=== PATIENT | male | born 1995 | race Caucasian/White ===

== ENCOUNTER 2016-10-14 08:24 | Inpatient (IN) | payer OTHER ==
[2016-10-14 09:55] VITALS: BMI 21.2
--- NOTE | 2016-10-14 12:36 | HP ---
COWS - Scale Resting Pulse: 0= [place] 80 or Below Sweatin=Flushed/Facial Moisture Restless Observation: 1= Difficult to Sit Still Pupil Size: 0= Normal to Room Light Bone or Joint Aches: 2= Severe Diffuse Aches Runny Nose/ Eye Tearin= Runny Nose/Eyes GI Upset > 30mins: 2= Nausea/Diarrhea Tremor Observation: 2= Slight Tremor Visible Yawning Observation: 2= >3x During Session Anxiety or Irritability: 2=Irritable/Anxious Goose Flesh Skin: 3=Piloerection COWS Score: 18 Admission ROS S - HPI Chief Complaint: I need to stop using heroin and get my life back. Allergies/Adverse Reactions: Allergies Allergy/AdvReac Type Severity Reaction Status Date / Time No Known Allergies Allergy Verified 10/14/16 10:06 History of Present Illness: pt is a20yr old male with a history of heroin dependence seeking detox for treatment. Exam Limitations: No Limitations - Ebola screening Have you traveled outside of the country in the last 21 days: No Have you had contact with anyone from an Ebola affected area: No Have you been sick,other than usual withdrawal symptoms: No Do you have a fever: No - Review of Systems Constitutional: Chills, Diaphoresis, Loss of Appetite, Night Sweats, Changes in sleep, Unintentional Wgt. Loss EENT: reports: Tearing, Nose Congestion Respiratory: reports: No Symptoms reported Cardiac: reports: No Symptoms Reported GI: reports: Diarrhea, Poor Appetite, Poor Fluid Intake : reports: No Symptoms Reported Musculoskeletal: reports: Back Pain, Joint Pain Integumentary: reports: Flushing, Sweating Neuro: reports: Headache, Tingling, Tremors Endocrine: reports: Excessive Sweating, Flushing, Intolerance to Cold, Intolerance to Heat Hematology: reports: No Symptoms Reported Psychiatric: reports: Judgement Intact, Mood/Affect Appropiate, Orientated x3, Agitated, Anxious Other Systems: Reviewed and Negative Patient History - Patient Medical History Hx Anemia: No Hx Asthma: No Hx Chronic Obstructive Pulmonary Disease (COPD): No Hx Cancer: No Hx Cardiac Disorders: No Hx Congestive Heart Failure: No Hx Hypertension: No Hx Hypercholesterolemia: No Hx Pacemaker: No HX Cerebrovascular Accident: No Hx Seizures: No Hx Dementia: No Hx Diabetes: No Hx Gastrointestinal Disorders: Yes (acid reflux) Hx Liver Disease: No Hx Genitourinary Disorders: No Hx Sexually Transmitted Disorders: No Hx Renal Disease (ESRD): No Hx Thyroid Disease: No Hx Human Immunodeficiency Virus (HIV): No (negative) Hx Hepatitis C: No (negative) Hx Depression: No Hx Suicide Attempt: No (denies) Hx Bipolar Disorder: No Hx Schizophrenia: No Other Medical History: insomnia - Patient Surgical History Past Surgical History: No Hx Neurologic Surgery: No Hx Cataract Extraction: No Hx Cardiac Surgery: No Hx Lung Surgery: No Hx Breast Surgery: No Hx Breast Biopsy: No Hx Abdominal Surgery: No Hx Appendectomy: No Hx Cholecystectomy: No Hx Genitourinary Surgery: No Hx Section: No Hx Orthopedic Surgery: No Anesthesia Reaction: No - PPD History Previous Implant?: Yes Documented Results: Negative w/o proof Implanted On Prior [facility] Admission?: No PPD to be Administered?: Yes - Reproductive History Patient is a Female of Child Bearing Age (11 -55 yrs old): No - Smoking Cessation Smoking history: Current every day smoker Have you smoked in the past 12 months: Yes Aproximately how many cigarettes per day: 20 Hx Chewing Tobacco Use: No Initiated information on smoking cessation: Yes 'Breaking Loose' booklet given: 10/14/16 - Substance & Tx. History Hx Alcohol Use: No Hx Substance Use: Yes Substance Use Type: Heroin, Marijuana Hx Substance Use Treatment: No - Substances Abused Heroin Route: Inhalation Frequency: Daily Amount used: 8-10 bags Age of first use: 17 Date of Last Use: 10/13/16 Marijuana Route: Smoking Frequency: Daily Amount used: $10 Age of first use: 17 Date of Last Use: 10/13/16 Family Disease History - Family Disease History Family History: Denies Admission Physical Exam S - Vital Signs Vital Signs: Vital Signs - 24 hr 10/14/16 09:52 Temperature 96.8 F L Pulse Rate 78 Respiratory 18 Rate Blood Pressure 122/67 - Physical General Appearance: Yes: Appropriately Dressed, Moderate Distress, Thin, Tremorous, Irritable, Sweating, Anxious HEENTM: Yes: Normal Voice, Nasal Congestion, Rhinorrhea Respiratory: Yes: Lungs Clear, Normal Breath Sounds, No Respiratory Distress Neck: Yes: No masses,lesions,Nodules Breast: Yes: Within Normal Limits Cardiology: Yes: Regular Rhythm, Regular Rate, S1, S2 Abdominal: Yes: Normal Bowel Sounds, Soft Genitourinary: Yes: Within Normal Limits Back: Yes: Normal Inspection Musculoskeletal: Yes: full range of Motion, Back pain Extremities: Yes: Normal Capillary Refill, Normal Inspection, Non-Tender, Tremors Neurological: Yes: Fully Oriented, Alert, Normal Response Integumentary: Yes: Normal Color, Diaphoresis Lymphatic: Yes: Within Normal Limits - Diagnostic (1) Opioid dependence with withdrawal Current Visit: Yes Status: Chronic (2) Nicotine dependence Current Visit: Yes Status: Chronic Qualifiers: Nicotine product type: cigarettes Substance use status: uncomplicated Qualified Code(s): F17.210 - Nicotine dependence, cigarettes, uncomplicated Cleared for Admission [facility] - Detox or Rehab [facility] Level of Care: Medically Managed Detox Regimen/Protocol: Methadone [facility] Breath Alcohol Content Breath Alcohol Content: 0 Urine Drug Screen - Results Drug Screen Negative: No Urine Drug Screen Results: THC-Marijuana, WILFREDO-Cocaine, OPI-Opiates, OXY- Oxycodone
[2016-10-14] MEDS ORDERED: guaiFENesin/D-METHORPHAN HB 10 ML UNIT-DOSE CUPS PO PRN (12:43)
[2016-10-14] MEDS ORDERED: NICOTINE POLACRILEX 2 MG GUM BUC PRN (12:43)
[2016-10-14] MEDS ORDERED: IBUPROFEN 400 MG TABLET (FP) PO PRN (12:43)
[2016-10-14] MEDS ORDERED: LOPERAMIDE HCL 2 MG CAPSULE PO PRN (12:43)
[2016-10-14] MEDS ORDERED: MENTHOL/PHENOL 1 EACH UD MM PRN (12:43)
[2016-10-14] MEDS ORDERED: P-EPHED 60MG/TRIPROLIDI 2.5MG TABLET PO PRN (12:43)
[2016-10-14] MEDS ORDERED: MAG HYDROX/AL HYDROX/SIMETH 30 ML UNIT-DOSE CUP PO PRN (12:43)
[2016-10-14] MEDS ORDERED: diphenhydrAMINE HCL 50 MG CAPSULE PO PRN (12:43)
[2016-10-14] MEDS ORDERED: ACETAMINOPHEN 325 MG TABLET (FP) PO PRN (12:43)
[2016-10-14] MEDS ORDERED: MAGNESIUM CITRATE 300 ML BOTTLE PO PRN (12:43)
[2016-10-14] MEDS ORDERED: MAGNESIUM HYDROX 2400MG/30ML ORAL SUSPENSION 30 ML CUP PO PRN (12:43)
[2016-10-14] MEDS ORDERED: METHADONE HCL 10 MG TABLET (FOR DETOX USE ONLY) PO ONE ×2 (12:53→23:00)
[2016-10-14] MEDS: diazePAM 5 MG TABLET PO PRN ×2 (13:26→19:57)
--- NOTE | 2016-10-14 15:04 | EKG ---
Test Reason : Blood Pressure : / mmHG Vent. Rate : 072 BPM Atrial Rate : 072 BPM P-R Int : 166 ms QRS Dur : 108 ms QT Int : 400 ms P-R-T Axes : 069 069 051 degrees QTc Int : 438 ms NORMAL SINUS RHYTHM INCOMPLETE RIGHT BUNDLE BRANCH BLOCK BORDERLINE ECG NO PREVIOUS ECGS AVAILABLE Confirmed by ALINE CARRILLO, BELLA ([id number]) on 10/14/2016 3:04:47 PM Referred By: Confirmed By:BELLA MIRELES MD
[2016-10-14 17:10] LABS: URINE APPEARANCE CLEAR; URINE BILIRUBIN NEGATIVE (NEGATIVE); URINE BLOOD NEGATIVE (NEGATIVE); URINE COLOR YELLOW; URINE GLUCOSE (UA) NEGATIVE (NEGATIVE); URINE KETONE NEGATIVE (NEGATIVE); URINE NITRITE NEGATIVE (NEGATIVE); URINE PROTEIN NEGATIVE (NEGATIVE); URINE UROBILINOGEN NEGATIVE E.U./dl (0.2-1.0)
[2016-10-14 17:22] LABS: URINE LEUK ESTERASE 1+ (NEGATIVE)
[2016-10-14 17:26] LABS: URINE MUCUS MODERATE; URINE RBC 2 /hpf (0-3); URINE WBC 39 /hpf (3-5)
[2016-10-14] MEDS: THIAMINE HCL 100 MG TABLET (FP) PO SCH (22:47)
[2016-10-15] MEDS: diazePAM 5 MG TABLET PO PRN ×5 (05:40→23:29)
[2016-10-15 09:34] LABS: MCH 32.1 pg (25.7-33.7); MCHC 33.4 g/dl (32.0-35.9); MEAN CELL VOLUME 96.1 fl (80-96); MEAN PLT VOLUME 9.8 fl (7.5-11.1); PLATELET COUNT 222 K/MM3 (134-434); RDW 12.9 % (11.9-15.9); WHITE BLOOD COUNT 7.7 K/mm3 (4.0-10.0)
[2016-10-15] MEDS ORDERED: METHADONE HCL 10 MG TABLET (FOR DETOX USE ONLY) PO ONE (10:00)
[2016-10-15 10:39] LABS: ALBUMIN 4.1 g/dl (3.4-5.0); ANION GAP 9 (8-16); CALCIUM 9.3 mg/dL (8.5-10.1); CO2 28 mmol/L (21-32); GLUCOSE,RANDOM 82 mg/dL (74-106); SGOT/AST 11 U/L (15-37)
[2016-10-15 10:41] LABS: ALK PHOS 86 U/L (45-117); BILIRUBIN,TOTAL 0.3 mg/dL (0.2-1.0); CREATININE 0.9 mg/dL (0.7-1.3); SGPT/ALT 20 U/L (12-78); TOT PROT 6.8 g/dl (6.4-8.2)
[2016-10-15] MEDS: NICOTINE 21 MG/24 HOURS TOPICAL PATCH TD SCH (11:13)
[2016-10-15] MEDS: PRENATAL VITAMINS W/ FOLIC ACID TABLET (FP) PO SCH (11:13)
--- NOTE | 2016-10-15 11:27 | PN ---
BHS COWS - Scale Resting Pulse: 0= [place] 80 or Below Sweatin=Flushed/Facial Moisture Restless Observation: 1= Difficult to Sit Still Pupil Size: 0= Normal to Room Light Bone or Joint Aches: 1= Mild Discomfort Runny Nose/ Eye Tearin= Runny Nose/Eyes GI Upset > 30mins: 1= Stomach Cramp Tremor Observation of Outstretched Hands: 2= Slight Tremor Visible Yawning Observation: 1= 1-2x During Session Anxiety or Irritability: 2=Irritable/Anxious Goose Flesh Skin: 0=Smooth Skin COWS Score: 12 BHS Progress Note (SOAP) Subjective: Anxiety,tremors,sweating,interrupted sleep,restless Objective: 10/15/16 11:25 Vital Signs - 8 hr 10/15/16 10/15/16 10/15/16 03:30 06:35 10:42 Temperature 97 F L 96.7 F L Pulse Rate 63 67 Respiratory 18 16 18 Rate Blood Pressure 117/68 107/68 Laboratory Last Values WBC 7.7 K/mm3 (4.0-10.0) 10/15/16 07:47 RBC 4.32 M/mm3 (4.00-5.60) 10/15/16 07:47 Hgb 13.9 GM/dL (11.7-16.9) 10/15/16 07:47 Hct 41.5 % (35.4-49) 10/15/16 07:47 MCV 96.1 fl (80-96) H 10/15/16 07:47 MCHC 33.4 g/dl (32.0-35.9) 10/15/16 07:47 RDW 12.9 % (11.9-15.9) 10/15/16 07:47 Plt Count 222 K/MM3 (134-434) 10/15/16 07:47 MPV 9.8 fl (7.5-11.1) 10/15/16 07:47 Sodium 139 mmol/L (136-145) 10/15/16 07:47 Potassium 4.0 mmol/L (3.5-5.1) 10/15/16 07:47 Chloride 102 mmol/L (98-107) 10/15/16 07:47 Carbon Dioxide 28 mmol/L (21-32) 10/15/16 07:47 Anion Gap 9 (8-16) 10/15/16 07:47 BUN 26 mg/dL (7-18) H 10/15/16 07:47 Creatinine 0.9 mg/dL (0.7-1.3) 10/15/16 07:47 Creat Clearance w eGFR > 60 (>60) 10/15/16 07:47 Random Glucose 82 mg/dL (74-106) 10/15/16 07:47 Calcium 9.3 mg/dL (8.5-10.1) 10/15/16 07:47 Total Bilirubin 0.3 mg/dL (0.2-1.0) 10/15/16 07:47 AST 11 U/L (15-37) L 10/15/16 07:47 ALT 20 U/L (12-78) 10/15/16 07:47 Alkaline Phosphatase 86 U/L (45-117) 10/15/16 07:47 Total Protein 6.8 g/dl (6.4-8.2) 10/15/16 07:47 Albumin 4.1 g/dl (3.4-5.0) 10/15/16 07:47 Urine Color Yellow 10/14/16 13:00 Urine Appearance Clear 10/14/16 13:00 Urine pH 5.0 (5.0-8.0) 10/14/16 13:00 Ur Specific [place] 1.032 (1.001-1.035) 10/14/16 13:00 Urine Protein Negative (NEGATIVE) 10/14/16 13:00 Urine Glucose (UA) Negative (NEGATIVE) 10/14/16 13:00 Urine Ketones Negative (NEGATIVE) 10/14/16 13:00 Urine Blood Negative (NEGATIVE) 10/14/16 13:00 Urine Nitrite Negative (NEGATIVE) 10/14/16 13:00 Urine Bilirubin Negative (NEGATIVE) 10/14/16 13:00 Urine Urobilinogen Negative E.U./dl (0.2-1.0) 10/14/16 13:00 Ur Leukocyte Esterase 1+ (NEGATIVE) H 10/14/16 13:00 Urine RBC 2 /hpf (0-3) 10/14/16 13:00 Urine WBC 39 /hpf (3-5) 10/14/16 13:00 Ur Epithelial Cells Rare /hpf (FEW) 10/14/16 13:00 Urine Mucus Moderate 10/14/16 13:00 RPR Titer Nonreactive (NONREACTIVE) 10/15/16 07:47 Hepatitis C Antibody <0.1 s/co ratio (0.0-0.9) 10/14/16 12:00 labs noted,repeat u/a Assessment: 10/15/16 11:26 withdrawal sx Plan: continue detox
[2016-10-15] MEDS: THIAMINE HCL 100 MG TABLET (FP) PO SCH (23:01)
[2016-10-16] MEDS: diazePAM 5 MG TABLET PO PRN ×5 (06:02→23:43)
[2016-10-16] MEDS ORDERED: METHADONE HCL 5 MG TABLET (FOR DETOX USE ONLY) PO ONE (10:00)
[2016-10-16] MEDS: PRENATAL VITAMINS W/ FOLIC ACID TABLET (FP) PO SCH (10:34)
[2016-10-16] MEDS: NICOTINE 21 MG/24 HOURS TOPICAL PATCH TD SCH (10:35)
--- NOTE | 2016-10-16 12:14 | PN ---
S COWS - Scale Resting Pulse: 0= [place] 80 or Below Sweatin= Chills/Flushing Restless Observation: 1= Difficult to Sit Still Pupil Size: 1= Pupils >than Normal Bone or Joint Aches: 2= Severe Diffuse Aches Runny Nose/ Eye Tearin= Runny Nose/Eyes GI Upset > 30mins: 2= Nausea/Diarrhea Tremor Observation of Outstretched Hands: 1= Tremor [place], Not Seen Yawning Observation: 1= 1-2x During Session Anxiety or Irritability: 2=Irritable/Anxious Goose Flesh Skin: 0=Smooth Skin COWS Score: 13 S Progress Note (SOAP) Subjective: Anxiety,tremors,sweating,interrupted sleep,restless Objective: 10/16/16 12:13 Vital Signs Temperature 96.5 F L 10/16/16 09:54 Pulse Rate 71 10/16/16 09:54 Respiratory Rate 15 10/16/16 09:54 Blood Pressure 112/85 10/16/16 09:54 O2 Sat by Pulse Oximetry (%) Laboratory Last Values WBC 7.7 K/mm3 (4.0-10.0) 10/15/16 07:47 RBC 4.32 M/mm3 (4.00-5.60) 10/15/16 07:47 Hgb 13.9 GM/dL (11.7-16.9) 10/15/16 07:47 Hct 41.5 % (35.4-49) 10/15/16 07:47 MCV 96.1 fl (80-96) H 10/15/16 07:47 MCHC 33.4 g/dl (32.0-35.9) 10/15/16 07:47 RDW 12.9 % (11.9-15.9) 10/15/16 07:47 Plt Count 222 K/MM3 (134-434) 10/15/16 07:47 MPV 9.8 fl (7.5-11.1) 10/15/16 07:47 Sodium 139 mmol/L (136-145) 10/15/16 07:47 Potassium 4.0 mmol/L (3.5-5.1) 10/15/16 07:47 Chloride 102 mmol/L (98-107) 10/15/16 07:47 Carbon Dioxide 28 mmol/L (21-32) 10/15/16 07:47 Anion Gap 9 (8-16) 10/15/16 07:47 BUN 26 mg/dL (7-18) H 10/15/16 07:47 Creatinine 0.9 mg/dL (0.7-1.3) 10/15/16 07:47 Creat Clearance w eGFR > 60 (>60) 10/15/16 07:47 Random Glucose 82 mg/dL (74-106) 10/15/16 07:47 Calcium 9.3 mg/dL (8.5-10.1) 10/15/16 07:47 Total Bilirubin 0.3 mg/dL (0.2-1.0) 10/15/16 07:47 AST 11 U/L (15-37) L 10/15/16 07:47 ALT 20 U/L (12-78) 10/15/16 07:47 Alkaline Phosphatase 86 U/L (45-117) 10/15/16 07:47 Total Protein 6.8 g/dl (6.4-8.2) 10/15/16 07:47 Albumin 4.1 g/dl (3.4-5.0) 10/15/16 07:47 Urine Color Yellow 10/14/16 13:00 Urine Appearance Clear 10/14/16 13:00 Urine pH 5.0 (5.0-8.0) 10/14/16 13:00 Ur Specific [place] 1.032 (1.001-1.035) 10/14/16 13:00 Urine Protein Negative (NEGATIVE) 10/14/16 13:00 Urine Glucose (UA) Negative (NEGATIVE) 10/14/16 13:00 Urine Ketones Negative (NEGATIVE) 10/14/16 13:00 Urine Blood Negative (NEGATIVE) 10/14/16 13:00 Urine Nitrite Negative (NEGATIVE) 10/14/16 13:00 Urine Bilirubin Negative (NEGATIVE) 10/14/16 13:00 Urine Urobilinogen Negative E.U./dl (0.2-1.0) 10/14/16 13:00 Ur Leukocyte Esterase 1+ (NEGATIVE) H 10/14/16 13:00 Urine RBC 2 /hpf (0-3) 10/14/16 13:00 Urine WBC 39 /hpf (3-5) 10/14/16 13:00 Ur Epithelial Cells Rare /hpf (FEW) 10/14/16 13:00 Urine Mucus Moderate 10/14/16 13:00 RPR Titer Nonreactive (NONREACTIVE) 10/15/16 07:47 Hepatitis C Antibody <0.1 s/co ratio (0.0-0.9) 10/14/16 12:00 labs noted Assessment: Withdrawal Symptoms Plan: Continue Detox
[2016-10-16] MEDS ORDERED: SODIUM CHLORIDE NASAL SPRAY 44 ML BOTTLE NS PRN (16:56)
[2016-10-16] MEDS: hydrOXYzine PAMOATE 50 MG CAPSULE (FP) PO PRN (20:49)
[2016-10-16] MEDS: THIAMINE HCL 100 MG TABLET (FP) PO SCH (22:32)
[2016-10-17] MEDS: diazePAM 5 MG TABLET PO PRN ×2 (06:19→10:26)
[2016-10-17] MEDS: hydrOXYzine PAMOATE 50 MG CAPSULE (FP) PO PRN ×3 (08:53→18:56)
[2016-10-17] MEDS ORDERED: METHADONE HCL 5 MG TABLET (FOR DETOX USE ONLY) PO ONE (10:00)
[2016-10-17] MEDS: PRENATAL VITAMINS W/ FOLIC ACID TABLET (FP) PO SCH (10:26)
[2016-10-17] MEDS: NICOTINE 21 MG/24 HOURS TOPICAL PATCH TD SCH (10:28)
[2016-10-17] MEDS ORDERED: BISACODYL 5 MG TABLET.DR (FP) PO ONE (12:00)
--- NOTE | 2016-10-17 15:36 | PN ---
S Progress Note (SOAP) Subjective: Sweating, nausea, anxious, interrupted sleep, tingling in hands; c/o constipation (hard stool yesterday, wants mild laxative) Objective: 10/17/16 15:34 Last Vital Signs Temp Pulse Resp BP Pulse Ox 96.0 F L 89 18 131/80 10/17/16 13:27 10/17/16 13:27 10/17/16 13:27 10/17/16 13:27 Laboratory Tests 10/14/16 10/14/16 10/15/16 12:00 13:00 07:47 WBC 7.7 RBC 4.32 Hgb 13.9 Hct 41.5 MCV 96.1 H MCHC 33.4 RDW 12.9 Plt Count 222 MPV 9.8 Sodium Potassium Chloride Carbon Dioxide Anion Gap BUN Creatinine Creat Clearance w eGFR Random Glucose Calcium Total Bilirubin AST ALT Alkaline Phosphatase Total Protein Albumin Urine Color Yellow Urine Appearance Clear Urine pH 5.0 Ur Specific [place] 1.032 Urine Protein Negative Urine Glucose (UA) Negative Urine Ketones Negative Urine Blood Negative Urine Nitrite Negative Urine Bilirubin Negative Urine Urobilinogen Negative Ur Leukocyte Esterase 1+ H Urine RBC 2 Urine WBC 39 Ur Epithelial Cells Rare Urine Mucus Moderate RPR Titer Hepatitis C Antibody <0.1 10/15/16 10/15/16 07:47 07:47 WBC RBC Hgb Hct MCV MCHC RDW Plt Count MPV Sodium 139 Potassium 4.0 Chloride 102 Carbon Dioxide 28 Anion Gap 9 BUN 26 H Creatinine 0.9 Creat Clearance w eGFR > 60 Random Glucose 82 Calcium 9.3 Total Bilirubin 0.3 AST 11 L ALT 20 Alkaline Phosphatase 86 Total Protein 6.8 Albumin 4.1 Urine Color Urine Appearance Urine pH Ur Specific [place] Urine Protein Urine Glucose (UA) Urine Ketones Urine Blood Urine Nitrite Urine Bilirubin Urine Urobilinogen Ur Leukocyte Esterase Urine RBC Urine WBC Ur Epithelial Cells Urine Mucus RPR Titer Nonreactive Hepatitis C Antibody Labs noted Assessment: 10/17/16 15:34 Withdrawal symptoms C/O Acute constipation Plan: Continue detox Acute constipation: encouraged to drink more water, dulcolax 10mg PO x 1 dose
[2016-10-17] MEDS: THIAMINE HCL 100 MG TABLET (FP) PO SCH (23:30)
[2016-10-18] MEDS: hydrOXYzine PAMOATE 50 MG CAPSULE (FP) PO PRN ×5 (05:39→22:30)
[2016-10-18] MEDS ORDERED: METHADONE HCL 10 MG TABLET (FOR DETOX USE ONLY) PO ONE (10:00)
[2016-10-18] MEDS: NICOTINE 21 MG/24 HOURS TOPICAL PATCH TD SCH (10:27)
[2016-10-18] MEDS: PRENATAL VITAMINS W/ FOLIC ACID TABLET (FP) PO SCH (10:27)
--- NOTE | 2016-10-18 12:07 | PN ---
BHS Progress Note (SOAP) Subjective: Sweating,interrupted sleep,restless Objective: 10/18/16 12:05 Vital Signs - 8 hr 10/18/16 10/18/16 06:09 09:49 Temperature 96.8 F L 96.5 F L Pulse Rate 87 83 Respiratory 16 18 Rate Blood Pressure 100/63 119/69 Laboratory Tests 10/14/16 10/14/16 10/15/16 12:00 13:00 07:47 WBC 7.7 RBC 4.32 Hgb 13.9 Hct 41.5 MCV 96.1 H MCHC 33.4 RDW 12.9 Plt Count 222 MPV 9.8 Sodium Potassium Chloride Carbon Dioxide Anion Gap BUN Creatinine Creat Clearance w eGFR Random Glucose Calcium Total Bilirubin AST ALT Alkaline Phosphatase Total Protein Albumin Urine Color Yellow Urine Appearance Clear Urine pH 5.0 Ur Specific [place] 1.032 Urine Protein Negative Urine Glucose (UA) Negative Urine Ketones Negative Urine Blood Negative Urine Nitrite Negative Urine Bilirubin Negative Urine Urobilinogen Negative Ur Leukocyte Esterase 1+ H Urine RBC 2 Urine WBC 39 Ur Epithelial Cells Rare Urine Mucus Moderate RPR Titer Hepatitis C Antibody <0.1 10/15/16 10/15/16 07:47 07:47 WBC RBC Hgb Hct MCV MCHC RDW Plt Count MPV Sodium 139 Potassium 4.0 Chloride 102 Carbon Dioxide 28 Anion Gap 9 BUN 26 H Creatinine 0.9 Creat Clearance w eGFR > 60 Random Glucose 82 Calcium 9.3 Total Bilirubin 0.3 AST 11 L ALT 20 Alkaline Phosphatase 86 Total Protein 6.8 Albumin 4.1 Urine Color Urine Appearance Urine pH Ur Specific [place] Urine Protein Urine Glucose (UA) Urine Ketones Urine Blood Urine Nitrite Urine Bilirubin Urine Urobilinogen Ur Leukocyte Esterase Urine RBC Urine WBC Ur Epithelial Cells Urine Mucus RPR Titer Nonreactive Hepatitis C Antibody labs noted,repeat U/A Assessment: 10/18/16 12:06 Withdrawal sx. Plan: Continue detox
[2016-10-18 19:05] LABS: URINE APPEARANCE CLEAR; URINE BILIRUBIN NEGATIVE (NEGATIVE); URINE BLOOD NEGATIVE (NEGATIVE); URINE COLOR STRAW; URINE GLUCOSE (UA) NEGATIVE (NEGATIVE); URINE KETONE NEGATIVE (NEGATIVE); URINE NITRITE NEGATIVE (NEGATIVE); URINE PROTEIN NEGATIVE (NEGATIVE); URINE UROBILINOGEN NEGATIVE E.U./dl (0.2-1.0)
[2016-10-18 19:24] LABS: URINE LEUK ESTERASE TRACE (NEGATIVE)
[2016-10-18 19:41] LABS: URINE BACTERIA RARE /hpf (NONE SEEN); URINE RBC <1 /hpf (0-3); URINE WBC 4 /hpf (3-5)
[2016-10-18] MEDS: THIAMINE HCL 100 MG TABLET (FP) PO SCH (22:29)
[2016-10-19] MEDS: hydrOXYzine PAMOATE 50 MG CAPSULE (FP) PO PRN (05:50)
[2016-10-19] MEDS ORDERED: METHADONE HCL 5 MG TABLET (FOR DETOX USE ONLY) PO ONE (06:00)
[2016-10-19 06:10] VITALS: BP 104/67; PULSE 80; TEMP 96.8
--- NOTE | 2016-10-19 08:45 | DS ---
[facility] Detox Discharge Summary Admission Date: 10/14/16 Discharge Date: 10/19/16 - History Present History: Opioid Dependence Pertinent Past History: denies - Physical Exam Results Vital Signs: Vital Signs Temperature 96.8 F L 10/19/16 06:09 Pulse Rate 80 10/19/16 06:09 Respiratory Rate 18 10/19/16 06:09 Blood Pressure 104/67 10/19/16 06:09 O2 Sat by Pulse Oximetry (%) Pertinent Admission Physical Exam Findings: Withdrawal sx. Laboratory Last Values WBC 7.7 K/mm3 (4.0-10.0) 10/15/16 07:47 RBC 4.32 M/mm3 (4.00-5.60) 10/15/16 07:47 Hgb 13.9 GM/dL (11.7-16.9) 10/15/16 07:47 Hct 41.5 % (35.4-49) 10/15/16 07:47 MCV 96.1 fl (80-96) H 10/15/16 07:47 MCHC 33.4 g/dl (32.0-35.9) 10/15/16 07:47 RDW 12.9 % (11.9-15.9) 10/15/16 07:47 Plt Count 222 K/MM3 (134-434) 10/15/16 07:47 MPV 9.8 fl (7.5-11.1) 10/15/16 07:47 Sodium 139 mmol/L (136-145) 10/15/16 07:47 Potassium 4.0 mmol/L (3.5-5.1) 10/15/16 07:47 Chloride 102 mmol/L (98-107) 10/15/16 07:47 Carbon Dioxide 28 mmol/L (21-32) 10/15/16 07:47 Anion Gap 9 (8-16) 10/15/16 07:47 BUN 26 mg/dL (7-18) H 10/15/16 07:47 Creatinine 0.9 mg/dL (0.7-1.3) 10/15/16 07:47 Creat Clearance w eGFR > 60 (>60) 10/15/16 07:47 Random Glucose 82 mg/dL (74-106) 10/15/16 07:47 Calcium 9.3 mg/dL (8.5-10.1) 10/15/16 07:47 Total Bilirubin 0.3 mg/dL (0.2-1.0) 10/15/16 07:47 AST 11 U/L (15-37) L 10/15/16 07:47 ALT 20 U/L (12-78) 10/15/16 07:47 Alkaline Phosphatase 86 U/L (45-117) 10/15/16 07:47 Total Protein 6.8 g/dl (6.4-8.2) 10/15/16 07:47 Albumin 4.1 g/dl (3.4-5.0) 10/15/16 07:47 Urine Color [place] 10/18/16 18:30 Urine Appearance Clear 10/18/16 18:30 Urine pH 6.0 (5.0-8.0) 10/18/16 18:30 Ur Specific [place] 1.005 (1.001-1.035) 10/18/16 18:30 Urine Protein Negative (NEGATIVE) 10/18/16 18:30 Urine Glucose (UA) Negative (NEGATIVE) 10/18/16 18:30 Urine Ketones Negative (NEGATIVE) 10/18/16 18:30 Urine Blood Negative (NEGATIVE) 10/18/16 18:30 Urine Nitrite Negative (NEGATIVE) 10/18/16 18:30 Urine Bilirubin Negative (NEGATIVE) 10/18/16 18:30 Urine Urobilinogen Negative E.U./dl (0.2-1.0) 10/18/16 18:30 Ur Leukocyte Esterase Trace (NEGATIVE) H 10/18/16 18:30 Urine RBC <1 /hpf (0-3) 10/18/16 18:30 Urine WBC 4 /hpf (3-5) 10/18/16 18:30 Ur Epithelial Cells Rare /hpf (FEW) 10/14/16 13:00 Urine Bacteria Rare /hpf (NONE SEEN) 10/18/16 18:30 Urine Mucus Moderate 10/14/16 13:00 RPR Titer Nonreactive (NONREACTIVE) 10/15/16 07:47 Hepatitis C Antibody <0.1 s/co ratio (0.0-0.9) 10/14/16 12:00 labs noted - Treatment Hospital Course: Detox Protocol Followed, Detoxed Safely, Responded well, Discharged Condition Good, Rehab Referral Accepted - Medication Discharge Medications: Ambulatory Orders NK [No Known Home Medication] 10/14/16 - Diagnosis (1) Nicotine dependence Current Visit: Yes Status: Chronic Qualifiers: Nicotine product type: cigarettes Substance use status: uncomplicated Qualified Code(s): F17.210 - Nicotine dependence, cigarettes, uncomplicated (2) Opioid dependence with withdrawal Current Visit: Yes Status: Chronic - AMA Did Patient Leave Against Medical Advice: No
== END 2016-10-19 08:40 | disposition home or self-care (01) | DRG 773 ==
LOC: YASAS 08:24 → Y3N 12:41
PROVIDERS: ADMIT Internal Medicine; ATTEND Internal Medicine
PROC: HZ2ZZZZ Detoxification Services for Substance Abuse Treatment (ICD-10-PCS; principal; 2016-10-14)
DX: F11.23 Opioid dependence with withdrawal (principal); F17.210 Nicotine dependence, cigarettes, uncomplicated; K59.00 Constipation, unspecified; K21.9 Gastro-esophageal reflux disease without esophagitis
CPT/HCPCS: 36415; 80053; 81003; 81015; 85027; 86593; 93005; 93010

== ENCOUNTER 2018-06-23 17:13 | Inpatient (IN) | payer OTHER ==
[2018-06-23 18:03] VITALS: BMI 20.6
--- NOTE | 2018-06-23 22:03 | HP ---
"COWS - Scale Resting Pulse: 1= [place] 81-100 Sweatin= Beads of Sweat on Face Restless Observation: 0= Sits Still Pupil Size: 2= Moderately Dilated (Pupils = 5mm) Bone or Joint Aches: 1= Mild Discomfort Runny Nose/ Eye Tearin= None GI Upset > 30mins: 1= Stomach Cramp Tremor Observation: 2= Slight Tremor Visible Yawning Observation: 0= None Anxiety or Irritability: 0= None Goose Flesh Skin: 0=Smooth Skin COWS Score: 10 Admission [facility] Chief Complaint: Here for opiate withdrawal. Allergies/Adverse Reactions: Allergies Allergy/AdvReac Type Severity Reaction Status Date / Time No Known Allergies Allergy Verified 06/23/18 20:12 History of Present Illness: Started using opiates at age 17. Currently using non-prescribed suboxone, percocets and opana. (intra-nasal) Started nicotine use at age 15. Nicotine use via Juul - 5 mg - and uses a pack/ day equivalency. Denies alcohol or benzo use. Denies hx blackouts, seizures, overdoses. Had 2 years sobriety and relapsed at age 20. Search Terms: Jaren Johnson, 1995 Search Date: 06/23/2018 09:37:29 PM The Drug Utilization Report below displays all of the controlled substance prescriptions, if any, that your patient has filled in the last twelve months. The information displayed on this report is compiled from pharmacy submissions to the Department, and accurately reflects the information as submitted by the pharmacies. This report was requested by: Stephanie Bernabe | Reference #: [id number] There are no results for the search terms that you entered. Exam Limitations: No Limitations - Ebola screening Have you traveled outside of the country in the last 21 days: No (N) Have you had contact with anyone from an Ebola affected area: No Have you been sick,other than usual withdrawal symptoms: No Do you have a fever: No - Review of Systems Constitutional: Chills, Diaphoresis, Fever (Feels ferverish.), Changes in sleep (Difficulty falling asleep) EENT: reports: No Symptoms Reported Respiratory: reports: No Symptoms reported Cardiac: reports: No Symptoms Reported GI: reports: No Symptoms Reported : reports: No Symptoms Reported Musculoskeletal: reports: Other (Muscle aches r/t withdrawal) Integumentary: reports: No Symptoms Reported Neuro: reports: Tremors ( r/t withdrawal) Endocrine: reports: No Symptoms Reported Hematology: reports: No Symptoms Reported Psychiatric: reports: Judgement Intact, Orientated x3 Patient History - Patient Medical History Hx Anemia: No Hx Asthma: No Hx Chronic Obstructive Pulmonary Disease (COPD): No Hx Cancer: No Hx Cardiac Disorders: No Hx Congestive Heart Failure: No Hx Hypertension: No Hx Hypercholesterolemia: No Hx Pacemaker: No HX Cerebrovascular Accident: No Hx Seizures: No Hx Dementia: No Hx Diabetes: No Hx Gastrointestinal Disorders: No Hx Liver Disease: No Hx Genitourinary Disorders: No Hx Sexually Transmitted Disorders: No Hx Renal Disease (ESRD): No Hx Thyroid Disease: No Hx Human Immunodeficiency Virus (HIV): No (negative 2017) Hx Hepatitis C: No (negative) Hx Depression: No Hx Suicide Attempt: No (denies) Hx Bipolar Disorder: No Hx Schizophrenia: No - Patient Surgical History Past Surgical History: No Hx Neurologic Surgery: No Hx Cataract Extraction: No Hx Cardiac Surgery: No Hx Lung Surgery: No Hx Breast Surgery: No Hx Breast Biopsy: No Hx Abdominal Surgery: No Hx Appendectomy: No Hx Cholecystectomy: No Hx Genitourinary Surgery: No Hx Section: No Hx Orthopedic Surgery: No Anesthesia Reaction: No - PPD History Previous Implant?: Yes Documented Results: Negative w/proof Implanted On Prior R Admission?: Yes Date: 10/16/16 PPD to be Administered?: Yes - Smoking Cessation Smoking history: Current every day smoker Have you smoked in the past 12 months: Yes Aproximately how many cigarettes per day: 20 (Juul) Hx Chewing Tobacco Use: No Initiated information on smoking cessation: Yes 'Breaking Loose' booklet given: 06/23/18 - Substance & Tx. History Hx Alcohol Use: No Hx Substance Use: Yes Substance Use Type: Heroin Hx Substance Use Treatment: Yes (detox, rehab) - Substances Abused PERCOCET Route: Oral Frequency: Daily Amount used: 2-3/30MG Age of first use: 20 Date of Last Use: 06/23/18 [place] Route: Oral Frequency: Daily Amount used: 1/40MG Age of first use: 20 Date of Last Use: 06/23/18 Admission Physical Exam BHS - Vital Signs Vital Signs: Vital Signs - 24 hr 06/23/18 17:59 Temperature 97.0 F L Pulse Rate 93 H Respiratory 18 Rate Blood Pressure 137/76 - Physical General Appearance: Yes: Mild Distress, Tremorous, Sweating HEENTM: Yes: EOMI, Hearing grossly Normal, Normocephalic, Normal Voice, [place] ( Pupils = 5 mm), Pharynx Normal (Saliva thick whitish.) Respiratory: Yes: Chest Non-Tender, Lungs Clear, Normal Breath Sounds, No Respiratory Distress Neck: Yes: No masses,lesions,Nodules, Supple Breast: Yes: Breast Exam Deferred Cardiology: Yes: Regular Rhythm, Regular Rate, S1, S2 Abdominal: Yes: Non Tender, Flat, Soft, Increased Bowel Sounds Genitourinary: Yes: Within Normal Limits Back: Yes: Normal Inspection Musculoskeletal: Yes: full range of Motion, Gait Steady Extremities: Yes: Normal Capillary Refill, Normal Range of Motion, Non-Tender, Tremors Neurological: Yes: director engineering II-XII NML intact, Fully Oriented, Alert, Motor Strength 5/5, Normal Response Integumentary: Yes: Normal Color, Dry (Decreased skin turgor), Warm Lymphatic: Yes: Within Normal Limits (Decreased skin turgor.) - Diagnostic (1) Dehydration Current Visit: Yes Status: Acute (2) Nicotine dependence Current Visit: Yes Status: Chronic Qualifiers: Nicotine product type: cigarettes Substance use status: uncomplicated Qualified Code(s): F17.210 - Nicotine dependence, cigarettes, uncomplicated (3) Opioid dependence with withdrawal Current Visit: Yes Status: Acute Cleared for Admission [facility] - Detox or Rehab [facility] Level of Care: Medically Supervised Detox Regimen/Protocol: Methadone [facility] Breath Alcohol Content Breath Alcohol Content: 0 Urine Drug Screen - Results Drug Screen Negative: No Urine Drug Screen Results: OXY-Oxycodone, BUP-Suboxone"
[2018-06-23] MEDS ORDERED: IBUPROFEN 400 MG TABLET (FP) PO PRN (22:34)
[2018-06-23] MEDS ORDERED: NICOTINE POLACRILEX 2 MG GUM BC PRN (22:34)
[2018-06-23] MEDS ORDERED: MAGNESIUM CITRATE 300 ML BOTTLE PO PRN (22:34)
[2018-06-23] MEDS ORDERED: LOPERAMIDE HCL 2 MG CAPSULE PO PRN (22:34)
[2018-06-23] MEDS ORDERED: MAGNESIUM HYDROX 2400MG/30ML ORAL SUSPENSION 30 ML CUP PO PRN (22:34)
[2018-06-23] MEDS ORDERED: ACETAMINOPHEN 325 MG TABLET (FP) PO PRN (22:34)
[2018-06-23] MEDS ORDERED: MAG HYDROX/AL HYDROX/SIMETH 30 ML UNIT-DOSE CUP PO PRN (22:34)
[2018-06-23] MEDS ORDERED: MENTHOL/PHENOL 1 EACH UD MM PRN (22:34)
[2018-06-23] MEDS ORDERED: diazePAM 5 MG TABLET PO ONE (23:00)
[2018-06-23] MEDS ORDERED: METHADONE HCL 10 MG TABLET (FOR DETOX USE ONLY) PO ONE ×2 (23:00)
[2018-06-23] MEDS: diazePAM 5 MG TABLET PO SCH (23:09)
[2018-06-24] MEDS: diazePAM 5 MG TABLET PO SCH ×3 (05:12→22:22)
[2018-06-24] MEDS: diazePAM 5 MG TABLET PO PRN ×2 (09:15→17:26)
[2018-06-24] MEDS ORDERED: METHADONE HCL 10 MG TABLET (FOR DETOX USE ONLY) PO SCH (10:00)
[2018-06-24] MEDS: PRENATAL VITAMINS W/ FOLIC ACID TABLET (FP) PO SCH (10:14)
[2018-06-24] MEDS: NICOTINE 21 MG/24 HOURS TOPICAL PATCH TD SCH (10:14)
[2018-06-24 10:22] LABS: HEMATOCRIT 42.5 % (35.4-49); HEMOGLOBIN 14.8 GM/dL (11.7-16.9); MCH 32.7 pg (25.7-33.7); MCHC 34.8 g/dl (32.0-35.9); MEAN CELL VOLUME 94.1 fl (80-96); MEAN PLT VOLUME 9.4 fl (7.5-11.1); PLATELET COUNT 265 K/MM3 (134-434); RBC 4.51 M/mm3 (4.00-5.60); RDW 12.3 % (11.9-15.9); WHITE BLOOD COUNT 6.9 K/mm3 (4.0-10.0)
[2018-06-24 11:02] LABS: ALBUMIN 3.8 g/dl (3.4-5.0); ALK PHOS 86 U/L (45-117); ANION GAP 12 MMOL/L (8-16); BILIRUBIN,TOTAL 0.4 mg/dL (0.2-1); BLOOD UREA NITROGEN 17 mg/dL (7-18); CALCIUM 8.9 mg/dL (8.5-10.1); CHLORIDE 101 mmol/L (98-107); CO2 27 mmol/L (21-32); CREATININE 0.8 mg/dL (0.55-1.3); GLUCOSE,RANDOM 93 mg/dL (74-106); POTASSIUM 3.8 mmol/L (3.5-5.1); SGOT/AST 9 U/L (15-37); SGPT/ALT 25 U/L (13-61); SODIUM 140 mmol/L (136-145); TOT PROT 6.7 g/dl (6.4-8.2)
--- NOTE | 2018-06-24 12:23 | EKG ---
Test Reason : Blood Pressure : / mmHG Vent. Rate : 085 BPM Atrial Rate : 085 BPM P-R Int : 148 ms QRS Dur : 090 ms QT Int : 384 ms P-R-T Axes : 075 081 067 degrees QTc Int : 456 ms NORMAL SINUS RHYTHM NORMAL ECG WHEN COMPARED WITH ECG OF 14-OCT-2016 13:45, NO SIGNIFICANT CHANGE WAS FOUND Confirmed by KAREN FAUST MD ([id number]) on 06/24/2018 12:23:49 PM Referred By: Confirmed By:KAREN FAUST MD
--- NOTE | 2018-06-24 12:25 | PN ---
BHS COWS - Scale Resting Pulse: 0= [place] 80 or Below Sweatin= Chills/Flushing Restless Observation: 1= Difficult to Sit Still Pupil Size: 0= Normal to Room Light Bone or Joint Aches: 1= Mild Discomfort Runny Nose/ Eye Tearin= Nasal Congestion GI Upset > 30mins: 1= Stomach Cramp Tremor Observation of Outstretched Hands: 1= Tremor [place], Not Seen Yawning Observation: 2= >3x During Session Anxiety or Irritability: 2=Irritable/Anxious Goose Flesh Skin: 0=Smooth Skin COWS Score: 10 BHS Progress Note (SOAP) Subjective: interrupted sleep, increase thirst, body aches Objective: 06/24/18 12:22 Vital Signs Temperature 97.1 F L 06/24/18 09:13 Pulse Rate 74 06/24/18 09:13 Respiratory Rate 18 06/24/18 09:13 Blood Pressure 96/60 06/24/18 09:13 O2 Sat by Pulse Oximetry (%) Laboratory Last Values WBC 6.9 K/mm3 (4.0-10.0) 06/24/18 08:00 RBC 4.51 M/mm3 (4.00-5.60) 06/24/18 08:00 Hgb 14.8 GM/dL (11.7-16.9) 06/24/18 08:00 Hct 42.5 % (35.4-49) 06/24/18 08:00 MCV 94.1 fl (80-96) 06/24/18 08:00 MCH 32.7 pg (25.7-33.7) 06/24/18 08:00 MCHC 34.8 g/dl (32.0-35.9) 06/24/18 08:00 RDW 12.3 % (11.9-15.9) 06/24/18 08:00 Plt Count 265 K/MM3 (134-434) 06/24/18 08:00 MPV 9.4 fl (7.5-11.1) 06/24/18 08:00 Sodium 140 mmol/L (136-145) 06/24/18 08:00 Potassium 3.8 mmol/L (3.5-5.1) 06/24/18 08:00 Chloride 101 mmol/L (98-107) 06/24/18 08:00 Carbon Dioxide 27 mmol/L (21-32) 06/24/18 08:00 Anion Gap 12 MMOL/L (8-16) 06/24/18 08:00 BUN 17 mg/dL (7-18) 06/24/18 08:00 Creatinine 0.8 mg/dL (0.55-1.3) 06/24/18 08:00 Creat Clearance w eGFR > 60 (>60) 06/24/18 08:00 Random Glucose 93 mg/dL (74-106) 06/24/18 08:00 Calcium 8.9 mg/dL (8.5-10.1) 06/24/18 08:00 Total Bilirubin 0.4 mg/dL (0.2-1) 06/24/18 08:00 AST 9 U/L (15-37) L 06/24/18 08:00 ALT 25 U/L (13-61) 06/24/18 08:00 Alkaline Phosphatase 86 U/L (45-117) 06/24/18 08:00 Total Protein 6.7 g/dl (6.4-8.2) 06/24/18 08:00 Albumin 3.8 g/dl (3.4-5.0) 06/24/18 08:00 HIV 1&2 Antibody Screen Negative 06/24/18 08:00 HIV P24 Antigen Negative 06/24/18 08:00 Aox3 no distress , anxious no adventitious breath sounds full ROM ambulating in the unit Assessment: 06/24/18 12:24 withdrawal sx Plan: increase po fluids continue to monitor continue detox
[2018-06-24 19:43] LABS: URINE APPEARANCE TURBID; URINE BILIRUBIN NEGATIVE (<2.0 mg/dL); URINE COLOR YELLOW; URINE GLUCOSE (UA) NEGATIVE (NEGATIVE); URINE KETONE NEGATIVE (NEGATIVE); URINE LEUK ESTERASE NEGATIVE (NEGATIVE); URINE NITRITE NEGATIVE (NEGATIVE); URINE PROTEIN NEGATIVE (NEGATIVE); URINE UROBILINOGEN NEGATIVE mg/dL (0.2-1.0)
[2018-06-24] MEDS: THIAMINE HCL 100 MG TABLET (FP) PO SCH (22:22)
[2018-06-24] MEDS: MELATONIN 5 MG TABLETS PO PRN (22:22)
[2018-06-25] MEDS: diazePAM 5 MG TABLET PO PRN ×4 (01:41→17:25)
[2018-06-25] MEDS ORDERED: hydrOXYzine PAMOATE 50 MG CAPSULE (FP) PO PRN (03:23)
[2018-06-25] MEDS: hydrOXYzine PAMOATE 50 MG CAPSULE (FP) PO PRN ×2 (03:43→17:26)
[2018-06-25] MEDS: PRENATAL VITAMINS W/ FOLIC ACID TABLET (FP) PO SCH (10:19)
[2018-06-25] MEDS: METHADONE HCL 5 MG TABLET (FOR DETOX USE ONLY) PO SCH (10:19)
[2018-06-25] MEDS: diazePAM 5 MG TABLET PO SCH ×2 (10:20→22:17)
[2018-06-25] MEDS: NICOTINE 21 MG/24 HOURS TOPICAL PATCH TD SCH (10:20)
--- NOTE | 2018-06-25 14:10 | PN ---
BHS COWS - Scale Resting Pulse: 0= [place] 80 or Below Sweatin= Chills/Flushing Restless Observation: 3= Extraneous Movement Pupil Size: 0= Normal to Room Light Bone or Joint Aches: 2= Severe Diffuse Aches Runny Nose/ Eye Tearin= Runny Nose/Eyes GI Upset > 30mins: 2= Nausea/Diarrhea Tremor Observation of Outstretched Hands: 2= Slight Tremor Visible Yawning Observation: 0= None Anxiety or Irritability: 2=Irritable/Anxious Goose Flesh Skin: 0=Smooth Skin COWS Score: 14 BHS Progress Note (SOAP) Subjective: Stomach cramps, body aches, interrupted sleep Objective: 06/25/18 14:07 Last Vital Signs Temp Pulse Resp BP Pulse Ox 97 F L 80 18 115/73 06/25/18 13:16 06/25/18 13:16 06/25/18 13:16 06/25/18 13:16 Laboratory Tests 06/24/18 06/24/18 06/24/18 08:00 08:00 08:00 WBC 6.9 RBC 4.51 Hgb 14.8 Hct 42.5 MCV 94.1 MCH 32.7 MCHC 34.8 RDW 12.3 Plt Count 265 MPV 9.4 Sodium 140 Potassium 3.8 Chloride 101 Carbon Dioxide 27 Anion Gap 12 BUN 17 Creatinine 0.8 Creat Clearance w eGFR > 60 Random Glucose 93 Calcium 8.9 Total Bilirubin 0.4 AST 9 L ALT 25 Alkaline Phosphatase 86 Total Protein 6.7 Albumin 3.8 Urine Color Urine Appearance Urine pH Ur Specific [place] Urine Protein Urine Glucose (UA) Urine Ketones Urine Blood Urine Nitrite Urine Bilirubin Urine Urobilinogen Ur Leukocyte Esterase RPR Titer HIV 1&2 Antibody Screen Negative HIV P24 Antigen Negative 06/24/18 06/24/18 08:00 08:39 WBC RBC Hgb Hct MCV MCH MCHC RDW Plt Count MPV Sodium Potassium Chloride Carbon Dioxide Anion Gap BUN Creatinine Creat Clearance w eGFR Random Glucose Calcium Total Bilirubin AST ALT Alkaline Phosphatase Total Protein Albumin Urine Color Yellow Urine Appearance Turbid Urine pH 5.0 Ur Specific [place] 1.033 Urine Protein Negative Urine Glucose (UA) Negative Urine Ketones Negative Urine Blood Negative Urine Nitrite Negative Urine Bilirubin Negative Urine Urobilinogen Negative Ur Leukocyte Esterase Negative RPR Titer Nonreactive HIV 1&2 Antibody Screen HIV P24 Antigen Labs reviewed Assessment: 06/25/18 14:09 Withdrawal symptoms Plan: Continue detox Encouraged PO water intake
[2018-06-25] MEDS: MELATONIN 5 MG TABLETS PO PRN (22:17)
[2018-06-25] MEDS: THIAMINE HCL 100 MG TABLET (FP) PO SCH (22:17)
[2018-06-26] MEDS: diazePAM 5 MG TABLET PO PRN ×5 (00:48→19:21)
[2018-06-26] MEDS: hydrOXYzine PAMOATE 50 MG CAPSULE (FP) PO PRN ×3 (02:29→16:41)
[2018-06-26] MEDS: NICOTINE 21 MG/24 HOURS TOPICAL PATCH TD SCH (10:11)
[2018-06-26] MEDS: PRENATAL VITAMINS W/ FOLIC ACID TABLET (FP) PO SCH (10:11)
[2018-06-26] MEDS: METHADONE HCL 5 MG TABLET (FOR DETOX USE ONLY) PO SCH (10:11)
[2018-06-26] MEDS: diazePAM 5 MG TABLET PO SCH ×2 (11:17→22:17)
--- NOTE | 2018-06-26 14:44 | PN ---
BHS Progress Note (SOAP) Subjective: sleep disturbance nicotine craving requesting more valium requesting to leave early on tue Objective: 06/26/18 14:45 Anxious ambulating steadily on unit Vital Signs Temperature 95.1 F L 06/26/18 13:11 Pulse Rate 88 06/26/18 13:11 Respiratory Rate 18 06/26/18 13:11 Blood Pressure 133/76 06/26/18 13:11 O2 Sat by Pulse Oximetry (%) Assessment: 06/26/18 14:46 withdrawal sx Plan: declined Nicotine patch Informed/educated about ordered prn valium Advised to mention early exit from floor on tuesday to provider tomorrow
[2018-06-26] MEDS: THIAMINE HCL 100 MG TABLET (FP) PO SCH (22:17)
[2018-06-26] MEDS: MELATONIN 5 MG TABLETS PO PRN (22:18)
[2018-06-27] MEDS: hydrOXYzine PAMOATE 50 MG CAPSULE (FP) PO PRN (00:46)
[2018-06-27] MEDS ORDERED: diazePAM 5 MG TABLET PO SCH (10:00)
[2018-06-27] MEDS ORDERED: METHADONE HCL 10 MG TABLET (FOR DETOX USE ONLY) PO SCH (10:00)
[2018-06-27] MEDS: PRENATAL VITAMINS W/ FOLIC ACID TABLET (FP) PO SCH (10:30)
[2018-06-27] MEDS: NICOTINE 21 MG/24 HOURS TOPICAL PATCH TD SCH (10:31)
--- NOTE | 2018-06-27 11:07 | PN ---
[facility] Progress Note Note: PATIENT CONTINUES WITH DETOX REGIMEN. PATIENT STATES HE FEELS BETTER. C/O INTERRUPTED SLEEP. Vital Signs Temperature 100 F H 06/27/18 09:24 Pulse Rate 104 H 06/27/18 09:24 Respiratory Rate 18 06/27/18 09:24 Blood Pressure 123/74 06/27/18 09:24 O2 Sat by Pulse Oximetry (%) Laboratory Tests 06/24/18 06/24/18 06/24/18 08:00 08:00 08:00 WBC 6.9 RBC 4.51 Hgb 14.8 Hct 42.5 MCV 94.1 MCH 32.7 MCHC 34.8 RDW 12.3 Plt Count 265 MPV 9.4 Sodium 140 Potassium 3.8 Chloride 101 Carbon Dioxide 27 Anion Gap 12 BUN 17 Creatinine 0.8 Creat Clearance w eGFR > 60 Random Glucose 93 Calcium 8.9 Total Bilirubin 0.4 AST 9 L ALT 25 Alkaline Phosphatase 86 Total Protein 6.7 Albumin 3.8 Urine Color Urine Appearance Urine pH Ur Specific [place] Urine Protein Urine Glucose (UA) Urine Ketones Urine Blood Urine Nitrite Urine Bilirubin Urine Urobilinogen Ur Leukocyte Esterase RPR Titer HIV 1&2 Antibody Screen Negative HIV P24 Antigen Negative 06/24/18 06/24/18 08:00 08:39 WBC RBC Hgb Hct MCV MCH MCHC RDW Plt Count MPV Sodium Potassium Chloride Carbon Dioxide Anion Gap BUN Creatinine Creat Clearance w eGFR Random Glucose Calcium Total Bilirubin AST ALT Alkaline Phosphatase Total Protein Albumin Urine Color Yellow Urine Appearance Turbid Urine pH 5.0 Ur Specific [place] 1.033 Urine Protein Negative Urine Glucose (UA) Negative Urine Ketones Negative Urine Blood Negative Urine Nitrite Negative Urine Bilirubin Negative Urine Urobilinogen Negative Ur Leukocyte Esterase Negative RPR Titer Nonreactive HIV 1&2 Antibody Screen HIV P24 Antigen ALERT AND ORIENTED X 3 SKIN WARM AND DRY CAR S1S2 RESP CTA BL EXT FULL ROM, NO EDEMA A/P WITHDRAWAL SX CONTINUE DETOX ENCOURAGE ORAL FLUIDS CONTINUE TO MONITOR CLINICALLY
[2018-06-27] MEDS: THIAMINE HCL 100 MG TABLET (FP) PO SCH (22:30)
[2018-06-27] MEDS: MELATONIN 5 MG TABLETS PO PRN (22:30)
[2018-06-28] MEDS ORDERED: METHADONE HCL 5 MG TABLET (FOR DETOX USE ONLY) PO SCH (06:00)
[2018-06-28 07:33] VITALS: PULSE 85; TEMP 99.2
[2018-06-28 07:34] VITALS: BP 105/64
--- NOTE | 2018-06-28 10:46 | DS ---
[facility] Detox Discharge Summary Admission Date: 06/23/18 Discharge Date: 06/28/18 - History Present History: Opioid Dependence - Physical Exam Results Vital Signs: Vital Signs Temperature 99.2 F 06/28/18 05:00 Pulse Rate 85 06/28/18 05:00 Respiratory Rate 18 06/28/18 05:00 Blood Pressure 105/64 06/28/18 05:00 O2 Sat by Pulse Oximetry (%) Pertinent Admission Physical Exam Findings: PATIENT COMPLETED DETOX WITHOUT ADVERSE EVENT. PATIENT CLINICALLY STABLE AND DENIES SI/HI. PATIENT'S FAMILY HAS ARRANGED OUT PATIENT REHAB TREATMENT. PATIENT ENCOURAGED TO ATTEND REHAB AND GROUP SERVICES TO PREVENT RELAPSE. PATIENT EDUCATED ON WITHDRAWAL SYMPTOMS AND ADVISED TO SEEK MEDICAL ATTENTION IF WITHDRAWAL SYMPTOMS OCCUR. D/C INSTRUCTIONS PROVIDED TO PATIENT BY STAFF. - Treatment Hospital Course: Detox Protocol Followed, Detoxed Safely, Responded well, Discharged Condition Good, Rehab Referral Accepted - Medication Discharge Medications: Ambulatory Orders NK [No Known Home Medication] 06/23/18 - Diagnosis (1) Opioid dependence with withdrawal Status: Resolved - AMA Did Patient Leave Against Medical Advice: No
== END 2018-06-28 08:14 | disposition home or self-care (01) | DRG 773 ==
LOC: YASAS 17:13 → Y3N 20:53
PROC: HZ2ZZZZ Detoxification Services for Substance Abuse Treatment (ICD-10-PCS; principal; 2018-06-23)
DX: F11.23 Opioid dependence with withdrawal (principal); F17.213 Nicotine dependence, cigarettes, with withdrawal; E86.0 Dehydration; R10.13 Epigastric pain
CPT/HCPCS: 36415; 80053; 81003; 85027; 86593; 87389; 93005; 93010

== ENCOUNTER 2024-07-11 13:52 | Inpatient (IN) | payer OTHER ==
[2024-07-11 14:23] VITALS: BMI 24.2
[2024-07-11] MEDS ORDERED: POLYETHYLENE GLYCOL (HEALTHYLAX) 3350 17 GM PACKET PO PRN (17:34)
[2024-07-11] MEDS ORDERED: MAGNESIUM HYDROX 2400MG/30ML ORAL SUSPENSION 30 ML CUP PO PRN (17:34)
[2024-07-11] MEDS ORDERED: NICOTINE POLACRILEX 4 MG GUM BUC PRN (17:34)
[2024-07-11] MEDS ORDERED: guaiFENesin 600 MG TABLET.ER (FP) PO PRN (17:34)
[2024-07-11] MEDS ORDERED: ONDANSETRON *ODT* 4 MG TABLET SL PRN (17:34)
[2024-07-11] MEDS ORDERED: IBUPROFEN 400 MG TABLET (FP) PO PRN (17:34)
[2024-07-11] MEDS ORDERED: DICYCLOMINE HCL 10 MG CAPSULE PO PRN (17:34)
[2024-07-11] MEDS ORDERED: ACETAMINOPHEN 325 MG TABLET (FP) PO PRN (17:34)
[2024-07-11] MEDS ORDERED: BENZOCAINE/MENTHOL (CHLORASEPTIC ) LOZENGE MM PRN (17:34)
[2024-07-11] MEDS ORDERED: MAG HYDROX/AL HYDROX/SIMETH 30 ML UNIT-DOSE CUP PO PRN (17:34)
[2024-07-11] MEDS ORDERED: NALOXONE (NARCAN) HCL 4 MG/0.1 ML SPRAY NS PRN (17:34)
[2024-07-11] MEDS ORDERED: BENZONATATE 200 MG CAPSULE PO PRN (17:34)
[2024-07-11] MEDS ORDERED: LOPERAMIDE HCL 2 MG CAPSULE PO PRN (17:34)
[2024-07-11] MEDS ORDERED: IBUPROFEN 600 MG TABLET (FP) PO PRN (17:34)
[2024-07-11] MEDS ORDERED: methaDONE HCL 10 MG TABLET (FOR DETOX USE ONLY) ONE (18:01)
[2024-07-11] MEDS: methaDONE HCL 10 MG TABLET (FOR DETOX USE ONLY) PO ONE (18:06)
[2024-07-11] MEDS: hydrOXYzine PAMOATE 25 MG CAPSULE (FP) PO PRN (18:56)
[2024-07-11] MEDS: cloNIDine HCL 0.1 MG TABLET PO PRN (18:56)
[2024-07-11] MEDS: BISMUTH SUBSALICYLATE 524 MG/30 ML PO PRN (18:59)
[2024-07-11] MEDS: METHOCARBAMOL 500 MG TABLET PO PRN (22:53)
[2024-07-11] MEDS: MELATONIN 5 MG TABLETS PO SCH (22:53)
[2024-07-11] MEDS: THIAMINE 100 MG TABLET PO SCH (22:53)
[2024-07-12] MEDS: NICOTINE 21 MG/24 HOURS TOPICAL PATCH TD SCH (09:54)
[2024-07-12] MEDS: PRENATAL VITAMINS W/ FOLIC ACID TABLET (FP) PO SCH (09:58)
[2024-07-12] MEDS ORDERED: hydrOXYzine PAMOATE 50 MG CAPSULE (FP) PO PRN ×2 (10:11)
[2024-07-12] MEDS: hydrOXYzine PAMOATE 25 MG CAPSULE (FP) PO ONE ×2 (10:28→11:06)
[2024-07-12] MEDS: diazePAM 5 MG TABLET PO PRN (11:08)
[2024-07-12 15:02] LABS: HEMOGLOBIN 14.4 GM/dL (11.7-16.9); MCHC 32.8 g/dl (32.0-35.9); MEAN CELL VOLUME 100.7 fl (80-96); MEAN PLT VOLUME 9.5 fl (7.5-11.1); PLATELET COUNT 217 10^3/uL (134-434); RBC 4.37 M/mm3 (4.00-5.60); RDW 12.8 % (11.9-15.9); WHITE BLOOD COUNT 7.6 K/mm3 (4.0-10.0)
[2024-07-12 16:23] LABS: CHLORIDE 103 mmol/L (98-107); POTASSIUM 4.1 mmol/L (3.5-5.1); SODIUM 137 mmol/L (136-145)
[2024-07-12 16:25] LABS: CALCIUM 9.4 mg/dL (8.5-10.1)
[2024-07-12 16:26] LABS: ANION GAP 6 mmol/L (4-13); BLOOD UREA NITROGEN 14.4 mg/dL (7-18); CO2 29 mmol/L (21-32); GLUCOSE,RANDOM 114 mg/dL (74-106)
[2024-07-12 16:29] LABS: CREATININE 0.9 mg/dL (0.55-1.3); SGOT/AST 23 U/L (15-37)
[2024-07-12 16:30] LABS: BILIRUBIN,TOTAL 0.3 mg/dL (0.2-1); SGPT/ALT 52 U/L (13-61); TOT PROT 6.9 g/dl (6.4-8.2)
[2024-07-12 16:32] LABS: ALK PHOS 93 U/L (45-117)
[2024-07-12 17:53] LABS: HIV INTERPRETATION NEGATIVE (NEGATIVE)
[2024-07-12] MEDS: SUVOREXANT 10 MG TABLET PO PRN (21:36)
[2024-07-12 23:11] VITALS: BP 120/76; PULSE 69; RESP 16; TEMP 97.5
[2024-07-13] MEDS ORDERED: methaDONE HCL 10 MG TABLET (FOR DETOX USE ONLY) PO ONE (10:00)
[2024-07-15] MEDS ORDERED: methaDONE HCL 10 MG TABLET (FOR DETOX USE ONLY) PO ONE (10:00)
== END 2024-07-13 01:18 | disposition left against medical advice (07) | DRG 770 ==
LOC: YASAS 13:52 → Y6N 17:47
PROVIDERS: ADMIT Allergy & Immunology; ATTEND Surgery
PROC: HZ2ZZZZ Detoxification Services for Substance Abuse Treatment (ICD-10-PCS; principal; 2024-07-11)
DX: F11.23 Opioid dependence with withdrawal (principal); F17.210 Nicotine dependence, cigarettes, uncomplicated; F41.8 Other specified anxiety disorders; E86.0 Dehydration; R10.13 Epigastric pain
CPT/HCPCS: 36415; 80053; 80305; 80307; 85027; 86780; 86803; 87389; 93005; 93010